=== PATIENT | female | born 1965 | race Caucasian/White ===

== ENCOUNTER → 2018-09-04 11:04 | Outpatient (CLI) | payer MEDICAID, SELFPAY ==
[2015-07-10 01:37] VITALS: BMI 46.5
[2018-09-04 12:44] LABS: Basophil# 0.01 X10^3/uL; Basophil% 0.2 % (0-1); Eosinophil# 0.06 X10^3/uL; Eosinophils% 1.1 % (0-5); Hematocrit 46.9 % (37-47); Hemoglobin 16.6 g/dl (12.0-15.0); Mean Corp Hgb Conc 35.4 g/gl (32-36); Mean Corpuscular Volume 87.5 fL (81-99); Mean Platelet Vol. 10.8 fl (6.2-12.0); Monocyte# 0.35 X10^3/uL; Monocyte% 6.4 % (0-10); Neutrophil # 3.96 X10^3/uL (2.7-7.7); Neutrophil % 72.1 % (47-70); Platelet Count 229 K/mm3 (150-450); RBC Distribution Width CV 13.3 % (11.6-14.6); Red Blood Count 5.36 M/mm3 (4.2-5.4); White Blood Count 5.5 K/mm3 (4.4-11.0)
[2018-09-04 12:48] LABS: POSITIVE COUNT NO; POSITIVE DIFFERENTIAL NO; POSITIVE MORPHOLOGY NO
[2018-09-04 13:11] LABS: ALB/GLOB Ratio 1.2 RATIO (0.9-2.4); AST(SGOT) 17 U/L (15-37); Alanine Aminotransfer ALT/SGPT 29 U/L (13-56); Albumin, Serum 3.8 g/dL (3.2-5.0); Alkaline Phosphatase 86 U/L (45-117); Anion Gap 6 (5-15); BUN 15 mg/dL (7-18); BUN/Creat Ratio 18.1 RATIO (10-20); Calcium,Total 9.3 mg/dL (8.5-10.1); Chloride 108 mmol/L (98-107); Creatinine, Serum 0.83 mg/dL (0.55-1.02); EST Glomerular Filtration Rate 77 mL/min (>60); Est Glom Filt Rate - Afr Amer 93 mL/min (>60); Ferritin 86 ng/mL (8-252); Globulin 3.3 g/dL (2.2-4.2); Glucose 132 mg/dL (74-106); Iron 163 ug/dL (50-170); Potassium 3.7 mmol/L (3.5-5.1); Protein, Total 7.1 g/dL (6.4-8.2); Sodium Level 139 mmol/L (136-145); T4 Free Direct 1.09 ng/dL (0.76-1.46); Thyroid Stim Hormone (TSH) 1.71 uIU/mL (0.358-3.74)
== END ==
PROVIDERS: PCP Family Medicine; Visit Provider Family Medicine
DX: D50.9 Iron deficiency anemia, unspecified (principal); D68.51 Activated protein C resistance; R73.01 Impaired fasting glucose
CPT/HCPCS: 36415; 80053; 82728; 83540; 84439; 84443; 85025

== ENCOUNTER → 2019-01-04 11:55 | Outpatient (CLI) | payer MEDICAID, SELFPAY ==
--- NOTE | 2019-01-04 12:01 | BI_ITS ---
MAMMOGRAPHY - BILATERAL SCREENING REASON FOR EXAM: Female, 53 years old. Routine annual screening examination. PERTINENT HISTORY: Non-contributory. TECHNIQUE: Digital bilateral breast samantha (3D mammographic acquisition) in the CC and MLO projections. 2-D mediolateral oblique (MLO) and craniocaudad (CC) views of both breasts were obtained. CAD: Full Field Digital Mammography with Computer Added Detection was performed. COMPARISON: Comparison is made with prior outside examination of November 26, 2015. FINDINGS: Breast Composition: There are scattered areas of fibroglandular density. There are no dominant masses or suspicious calcifications. Stable benign-appearing bilateral axillary lymph nodes. No other significant abnormalities are identified. There has been no significant change since the prior study. BI/SCREEN MAMM (CAD) W/SAMANTHA BILAT IMPRESSION: Stable bilateral screening mammogram. Yearly follow-up mammogram recommended. (A) ASSESSMENT CATEGORY: BIRADS Category 2: Benign. A letter regarding these results will be sent to the patient by the facility within 30 days. Approximately 10% of breast cancers are not detected by mammography. A normal mammogram should not delay biopsy of a clinically suspicious abnormality. [id number] Electronically Signed: Tip Degroot, at 12:58 EST , Service support ,
== END ==
PROVIDERS: Family Provider Family Medicine; PCP Family Medicine; Referring Provider Family Medicine; Visit Provider Family Medicine
DX: Z12.31 Encounter for screening mammogram for malignant neoplasm of breast (principal)
CPT/HCPCS: 77063; 77067

== ENCOUNTER → 2020-04-04 15:03 | Outpatient (CLI) | payer OTHER, SELFPAY ==
--- NOTE | 2020-04-04 15:09 | VDLE_ITS ---
Reason For Study: Pain, Hx DVT Procedure LEFT This is a venous duplex using B-mode, color GSV is normal. flow and spectral Doppler. CFV is compressible, spontaneous, phasic, Exam performed in department. competent, and demonstrates normal A preliminary report was called and/or faxed augmentation. to [facility]. FV is compressible, spontaneous, phasic, competent and demonstrates normal augmentation. POP V is compressible, spontaneous, phasic, competent and demonstrates normal augmentation. T/P Trunk is compressible. PTV is compressible. LT PerV is compressible. Interpretation Summary Deep veins of the left lower extremity are patent and compressible segmentally. There is no evidence of left lower extremity deep vein thrombosis. Valvular competence appears intact within the proximal deep venous system on the left . The left great saphenous vein appears patent and compressible segmentally. Ordering Physician: Scott Valente Referring Physician: Scott Valente Performed By: Aria Garza RVT
== END ==
PROVIDERS: PCP Family Medicine; Referring Provider Family Medicine; Visit Provider Family Medicine
DX: D68.51 Activated protein C resistance (principal); Z86.718 Personal history of other venous thrombosis and embolism
CPT/HCPCS: 93971

== ENCOUNTER 2021-05-13 09:18 | Outpatient (CLI) | payer OTHER, SELFPAY ==
[2021-05-13 10:22] LABS: Absolute Lymphocyte Count 1.12 X10^3/uL (0.83-4.51); Absolute Neutrophil Count 4.5 X10^3/uL (2.0-7.7); Basophil# 0.04 X10^3/uL; Basophil% 0.7 % (0-1); Eosinophil# 0.06 X10^3/uL; Hematocrit 46.5 % (37-47); Hemoglobin 16.8 g/dL (12.0-15.0); Lymphocyte # 1.12 X10^3/ul (0.83-4.51); Lymphocyte % 18.5 % (19-41); Mean Corp Hgb Conc 36.1 g/dL (32-36); Mean Corpuscular Hgb 31.6 pg (27.0-32.0); Mean Corpuscular Volume 87.4 fL (81-99); Mean Platelet Vol. 10.3 fl (6.2-12.0); Monocyte# 0.38 X10^3/uL; Monocyte% 6.3 % (0-10); NRBC Flagged by Analyzer 0 % (0-5); Neutrophil # 4.45 X10^3/uL (2.7-7.7); Neutrophil % 73.3 % (47-70); Platelet Count 330 K/mm3 (150-450); RBC Distribution Width CV 13.1 % (11.6-14.6); Red Blood Count 5.32 M/mm3 (4.2-5.4); White Blood Count 6.1 K/mm3 (4.4-11.0)
[2021-05-13 11:22] LABS: ALB/GLOB Ratio 1.2 RATIO (0.9-2.4); AST(SGOT) 16 U/L (15-37); Alanine Aminotransfer ALT/SGPT 30 U/L (13-56); Albumin, Serum 3.7 g/dL (3.2-5.0); Alkaline Phosphatase 90 U/L (45-117); Anion Gap 7 (5-15); BUN 27 mg/dL (7-18); BUN/Creat Ratio 29.7 RATIO (10-20); Calcium,Total 9.6 mg/dL (8.5-10.1); Chloride 106 mmol/L (98-107); Cholesterol 197 mg/dL (200); Creatinine, Serum 0.91 mg/dL (0.55-1.02); EST Glomerular Filtration Rate 68 mL/min (>60); Est Glom Filt Rate - Afr Amer 82 mL/min (>60); Globulin 3.2 g/dL (2.2-4.2); Glucose 167 mg/dL (74-106); High Density Lipoprotein 49 mg/dL; Protein, Total 6.9 g/dL (6.4-8.2); Sodium Level 139 mmol/L (136-145); Thyroid Stim Hormone (TSH) 1.36 uIU/mL (0.358-3.74); Triglycerides 88 mg/dL; Very Low Density Lipoprotein 18 mg/dL (5-40)
== END 2021-05-13 23:59 | disposition home or self-care (01) ==
LOC: MTLAB 09:20
PROVIDERS: PCP Family Medicine; Referring Provider Family Medicine; Visit Provider Family Medicine
DX: E11.9 Type 2 diabetes mellitus without complications (principal); E66.01 Morbid (severe) obesity due to excess calories; D50.9 Iron deficiency anemia, unspecified
CPT/HCPCS: 36415; 80053; 80061; 84443; 85025

== ENCOUNTER → 2023-02-24 | Outpatient (CLI) | payer OTHER, SELFPAY ==
--- OUTSIDE RECORDS SUMMARY | 2023-02-24 08:54 | XMS RPT_ITS | CCD ---
Author Name Unknown Address [facility] [place] [id number] Organization [facility] Results Test Name Value Interpretation Reference Range Facil ity Progress note 05-29-2020 Note Date & Type Note Facility 05-29-2020 Note HNO ID: [id number] Author: Mitali Tang) Og Mancini Service: ? Author Type: Communications Maintainer Type: Progress Notes Filed: 05/29/2020 2:24 PM Note Text: Radiology Service Progress Note PATIENT NAME: Reymundo Bob DATE OF SERVICE: May 29, 2020 TIME: 2:24 PM PATIENT IDENTITY VERIFICATION COMPLETED USING TWO (2) IDENTIFIERS: Name and Date of confirmed by patient verbally. FALL SCREENING: Has the patient had 2 falls in the last year or 1 fall with injury or currently using an Ambulatory Assistive Device (Walker, Cane, Wheelchair, Crutches, etc.)? No PATIENT GENDER DATA: Female. status: : No status: NO. PATIENT RELEVANT IMPLANT DATA REVIEWED: Not Applicable RADIOLOGY DEPARTMENT: Mammography PERIPHERAL IV DATA: Not applicable SIGNED BY: Og Alejo May 29, 2020 2:[address] [facility] Progress note 05-29-2020 Note Date & Type Note Facility 05-29-2020 Note HNO ID: [id number] Author: Nicola Rogers Jr. Service: ? Author Type: Physician Type: Progress Notes Filed: 05/29/2020 10:30 AM Note Text: NEW PATIENT (CONSULT) HISTORY AND PHYSICAL EXAM PRIMARY CARE PHYSICIAN: Scott Valente MD REASON FOR CONSULT: GERARD REFERRING PHYSICIAN: Nicola Rogers Jr., MD CHIEF COMPLAINT: GERARD Consultation requested by Nicola Rogers Jr., MD for an opinion regarding chief complaint of Patient presents with: New Patient: sleep apnea and my final recommendations will be communicated back to the requesting physician by way of shared medical record or letter via US mail. HISTORY OF PRESENT ILLNESS: Reymundo Bob is a 55 year old female, BMI 42.43 kg/m2 with a PMH significant for GERARD diagnosed by PSG in 2009. That study reviewed showing patient to have AHI of 118.9 while off supine with min O2 of 70%. That became a split night study at which time CPAP at 13 cmH2O was recommended. The patient then underwent a repeat PAP titration in 2013 - reviewed data - showing need again for CPAP at 13 cmH2O. Pt has not been followed by the sleep center since 2013. Pt states still using PAP. Needs new PAP device with last Rx'd in 2009. Reports no issues with using PAP but the device is falling apart . States noticed in the last 6 months more tired and does not feel like was getting the same amount of pressure. However, also has lost weight. Down 11kg less than when had study in 2009. States sleeping ok. No issues falling asleep to start the night. No RLS symptoms. Wakes about 2-3 times per night but brief - pain better controlled then when last saw Dr. Garcia. Bedtime about 10PM and wakes about 630AM. Does not feel as refreshed in AM as once did and yawns in the AM. Feels tired throughout the day. States perhaps due to job that she refers to as stressful. No naps during the day but feels she could use one. Feels machine was working better 2 years ago. Receiving new masks on regular basis and cleaning machine regularly. Pt's machine does not do downloads. No parasomnias. No narcolepsy tetrad. Sleep Questionnaire Data Depression Screening 03/27/2010 08/31/2013 05/22/2020 PHQ-2 Score 0 1 0 PHQ-9 Score 0 3 3 PED PHQ-9 03/27/2010 08/31/2013 05/22/2020 Little interest or pleasure in doing things - - Not at all Feeling down, depressed, or hopeless - - Not at all Trouble falling or staying asleep, or sleeping too much - - Several days Feeling tired or having little energy - - More than half the days Poor appetite or overeating - - Not at all Feeling bad about yourself - or that you are a failure or have let yourself or your family down - - Not at all Trouble concentrating on things, such as reading the newspaper or watching television - - Not at all Moving or speaking so slowly that other people could have noticed. Or the opposite - being so fidgety or restless that you have been moving around a lot more than usual - - Not at all Thoughts that you would be better off , or of hurting yourself in some way - - Not at all If you checked off any problems, how difficult have these problems made it for you to do your work, take care of things at home, or get along with other people? - - Not difficult at all [place] Sleepiness Scale 03/27/2010 08/31/2013 05/22/2020 Score - - 4 (No daytime sleepiness) REVIEW OF SYSTEMS GENERAL:No weight loss, malaise or fevers. HEENT:Negative for frequent or significant headaches, No changes in hearing or vision, no nose bleeds or other nasal problems NECK:Negative for lumps, goiter, pain and significant neck swelling RESPIRATORY: Negative for cough, wheezing or shortness of breath. CARDIOVASCULAR: Negative for chest pain, leg swelling or palpitations. GASTROINTESTINAL: Negative for abdominal discomfort, blood in stools or black stools or change in bowel habits GENITOURINARY: No history of dysuria, frequency or incontinence MUSCULOSKELETAL: Negative for joint pain or swelling, back pain or muscle pain. NEUROLOGIC:Negative for focal numbness or weakness, headaches and dizziness or syncope, vision changes, speech/language changes, changes in gait or falls -- besides those complaints as above in HPI. LAB/IMAGING: PCP outside of [facility]. Reviewed and include: WBC (k/uL) Date Value 10/15/2015 7.30 RBC (m/uL) Date Value 10/15/2015 4.94 Hemoglobin (g/dL) Date Value 10/15/2015 14.9 Hematocrit (%) Date Value 10/15/2015 43.9 MCV (fL) Date Value 10/15/2015 88.9 MCH (pG) Date Value 10/15/2015 30.2 MCHC (g/dL) Date Value 10/15/2015 33.9 RDW-CV (%) Date Value 10/15/2015 14.8 Platelet Count (k/uL) Date Value 10/15/2015 288 MPV (fL) Date Value 10/15/2015 11.5 MEDICATIONS: miconazole (LOTRIMIN AF, DESENEX) 2 % powder Apply 1 application to affected area as needed for Itching/Rash. levonorgestrel (MIRENA) 20 mcg/24 hr (5 years) IUD 1 Each by INTRAUTERINE route one time only. warfarin (C (more content not included)... [facility] Clinical Note 05-09-2020 Note Date & Type Note Facility 05-09-2020 Note ADDITIONAL PROCEDURES PRESENT Specimen originated from [facility] Specimen #: [id number] Submitting Physician: VALERIA HUNTER M.D. ([id number]) SPECIMEN SUBMITTED A: CERVICAL, SCREENING, FLUID FINAL DIAGNOSIS A. CERVICAL, SCREENING, FLUID Satisfactory for interpretation. Negative for intraepithelial lesion or malignancy. Acute inflammation. Predominance of coccobacilli consistent with shift in vaginal radha. STALIN Delatorre(ASCP) (Electronic Signature) ADDITIONAL PROCEDURE(S) HUMAN PAPILLOMA VIRUS Date Ordered: 05/12/2020 Date Reported: 05/14/2020 Procedure Results and Interpretation Negative for HPV DNA high risk type 16 by PCR. Negative for HPV DNA high risk type 18 by PCR. Negative for HPV DNA high risk types: 31,33,35,39,45,51,52,56,58,59,66,68 by PCR. This test was developed and its performance characteristics determined by [facility]'s [facility] [place] [facility] It has not been cleared or approved by the FDA. [facility] is regulated under CLIA as qualified to perform high-complexity testing. This test is used for clinical purposes. It should not be regarded as investigational or for research. CLINICAL DATA ROUTINE EXAM, HPV Testing: Yes, automatic HPV patients over 30 Date of Last Menstrual Period: IUD STAINS A: CERVICAL, SCREENING, FLUID THIN PREP JOURNALISM INTERN Federico Matthews M.D., Brass Finisher Date of Report: 05/15/2020 Date of Procedure: 05/09/2020 Date of Receipt: 05/12/2020 Submitted by: VALERIA HUNTER M.D. ([id number]) Location: [facility] Diagnostic interpretation performed at [place] [address]. CLIA Number: [id number] The Pap Smear is a screening test for cervical cancer. False negative results occur with all screening tests, emphasizing the need for rescreening at recommended intervals, and clinical correlation. [facility] Progress note 05-09-2020 Note Date & Type Note Facility 05-09-2020 Note HNO ID: [id number] Author: Valeria Hunter Service: ? Author Type: ? Type: Progress Notes Filed: 05/09/2020 9:58 AM Note Text: Yeni is a 55 year old who presents for an annual gynecologic exam without complaints. Has h/o endometrial hyperplasia and polyps. Has Mirena since 2016 when had DANDC polypectomy. No bleeding. No new c/o Postmenopausal: yes HRT use: No. Last Pap: 11/28/2015 normal HPV: 11/20/2015 negative History of abnormal pap: No Last mammogram: 2018normal History of abnormal mammogram: No Sexually active: Yes OB History T0 L0 SAB0 TAB0 Ectopic0 Multiple0 Live Births0 PAST MEDICAL HISTORY Diagnosis Date - Anemia - DVT of lower limb, acute (HCC) 07/04 right leg - Essential hypertension, benign 02/05/2010 - Factor V Leiden mutation (HCC) heterozygous - Morbid obesity (HCC) - Obesity - Obstructive sleep apnea - Snoring - Thickened endometrium 10/24/2015 PAST SURGICAL HISTORY Procedure Laterality Date - COLONOSCOPY 06/04/14 repeat in 5 years-fam Hx colon cancer - EGD 06/04/14 - PAST SURGICAL HISTORY OF Left nail in foot as child - PAST SURGICAL HISTORY OF 08/19/2015 dANDc - PAST SURGICAL HISTORY OF 10/24/2015 hysteroscopy, polypectomy, DANDC, insertion Mirena IUD FAMILY HISTORY Problem Relation Age of Onset - Psychiatry Mother Depression - Colon Cancer Mother diagnosed age 68 - Diabetes Father obese - Hypertension Father - Diabetes Paternal Grandmother - Cancer Maternal Grandmother breast cancer - Diabetes Maternal Grandmother - Blood Disease Brother factor 5 - Psychiatry Sister Depression - Diabetes Sister - Hypertension Sister - Asthma Other Niece - Blood Disease Paternal Grandfather - Blood Disease Brother SOCIAL HISTORY Social History Tobacco Use - Smoking status: Never Smoker - Smokeless tobacco: Never Used Substance Use Topics - Alcohol use: No Comment: Rarely - Drug use: No REVIEW OF SYSTEMS Abdomen: No abdominal pain, nausea, vomiting, diarrhea, or constipation. No bloating, early satiety, indigestion, or increased flatulence. Bladder: No dysuria, gross hematuria, urinary frequency, urinary urgency, or incontinence Breast: No breast lumps, nipple d/c, overlying skin changes, redness or skin retraction Allergies and current medication updated:Yes EXAM: Ht 5' 5 (1.65m) Wt 256 lb (116.1kg) LMP 10/12/2015 BMI 42.60 kg/(m2). GENERAL: pleasant, female in no apparent distress HEENT: Normocephalic, atraumatic, mucus membranes moist and no lesions NECK: Supple, full range of motion, no adenopathy and thyroid normal DERMATOLOGY: Normal, without lesions, non-icteric and non-hirsute, some erythema under pannus, in groin folds and under breasts BREAST: soft, non-tender, symmetric, no dominant mass, normal nipple-areolar complex, no lymphadenopathy and no nipple discharge CHEST: Normal inspiratory effort ABDOMEN: soft, non-tender and no masses PELVIC: external genitalia normal, normal Bartholin's glands, urethra, Honeygo's glands, no vulvar lesions, no cervical lesions, good vaginal support, physiologic discharge present, normal appearing perineal body and perianal region, IUD strings 3 cm long, BIMANUAL: uterus normal size, shape and consistency, no adnexal masses, non-tender and limited by habitus RECTOVAGINAL: deferred. NEURO: alert and oriented x3,exam grossly non-focal EXTREMITIES: normal ASSESSMENT/PLAN: 1) Health maintenance: Pap done with HPV. Mammogram ordered Colon cancer screening: ordered by PCP, family h/o colon ca 2) Follow up one year or sooner as needed leave IUD in for 7 years unless other indication to remove it d/w her symptomatic measures for intertriginous yeast, trial zeasorb Valeria Hunter MD [facility] Summary Purpose Family History No Family History Records Found Advance Directives No Advanced Directives Records Found Additional Source Comments INFORMATION SOURCE (unrecogn ized section and content) FOR RECORDS PERTAINING TO PATIENTS WHO ARE OR HAVE BEEN ENROLLED IN A CHEMICAL DEPENDENCY/SUBSTANCEABUSE PROGRAM, SOME INFORMATION MAY BE OMITTED. This clinical summary was aggregated from multiple sources. Caution should be exercised in using it in the provision of clinical care. This summary normalizes information from multiple sources, and as a consequence, information in this document may materially change the coding, format and clinical context of patient data. In addition, data may be omitted in some cases. CLINICAL DECISIONS SHOULD BE BASED ON THE PRIMARY CLINICAL RECORDS. [employer] provides no warranty or guarantee of the accuracy or completeness of information in this document.
[2023-02-24 10:31] LABS: Absolute Lymphocyte Count 1.33 X10^3/uL (0.83-4.51); Absolute Neutrophil Count 5.9 X10^3/uL (2.0-7.7); Basophil# 0.08 X10^3/uL; Eosinophil# 0.15 X10^3/uL; Eosinophils% 1.9 % (0-5); Hematocrit 51.8 % (37-47); Hemoglobin 17.1 g/dL (12.0-15.0); Lymphocyte # 1.33 X10^3/ul (0.83-4.51); Lymphocyte % 16.7 % (19-41); Mean Corpuscular Hgb 30.2 pg (27.0-32.0); Mean Corpuscular Volume 91.4 fL (81-99); Mean Platelet Vol. 10.1 fl (6.2-12.0); Monocyte# 0.46 X10^3/uL; Monocyte% 5.8 % (0-10); NRBC Flagged by Analyzer 0 % (0-5); Neutrophil % 74.2 % (47-70); Platelet Count 482 K/mm3 (150-450); RBC Distribution Width CV 13.7 % (11.6-14.6); RBC Distribution Width SD 46.5 fl (35.1-43.9); Red Blood Count 5.67 M/mm3 (4.2-5.4)
[2023-02-24 10:53] LABS: ALB/GLOB Ratio 1.1 RATIO (0.9-2.4); AST(SGOT) 20 U/L (15-37); Alanine Aminotransfer ALT/SGPT 28 U/L (13-56); Albumin, Serum 3.6 g/dL (3.2-5.0); Alkaline Phosphatase 74 U/L (45-117); Anion Gap 5 (5-15); BUN 21 mg/dL (7-18); BUN/Creat Ratio 28.8 RATIO (10-20); Chloride 108 mmol/L (98-107); Cholesterol 187 mg/dL (200); Creatinine, Serum 0.73 mg/dL (0.55-1.02); EST Glomerular Filtration Rate 87 mL/min (>60); Est Glom Filt Rate - Afr Amer 106 mL/min (>60); Globulin 3.4 g/dL (2.2-4.2); Glucose 155 mg/dL (74-106); High Density Lipoprotein 57 mg/dL; Sodium Level 138 mmol/L (136-145); Triglycerides 161 mg/dL; Very Low Density Lipoprotein 32 mg/dL (5-40)
[2023-02-24 11:16] LABS: International Normalized Ratio 1.9; Prothrombin Time (Protime)PT. 21.5 SECONDS (11.7-14.9)
[2023-02-24 12:37] LABS: Microalbumin,Random Urine 22.5 mg/L (NO RANGE EST.); Microalbumin:Creatinine Ratio 80.4 mg/g CRE (<30 mg/g CRE)
== END | disposition home or self-care (01) ==
LOC: MFPLAB 08:33
PROVIDERS: PCP Family Medicine; Visit Provider Family Medicine
DX: D68.51 Activated protein C resistance (principal)
CPT/HCPCS: 36415; 80053; 80061; 82043; 82570; 85025; 85610

== ENCOUNTER → 2023-06-08 | Outpatient (CLI) | payer OTHER, SELFPAY ==
[2023-06-08] VITALS (12 sets, daily range): BP systolic 117–150; BP diastolic 70–111; PULSE 75–84; RESP 16–18; TEMP 36.2; O2SAT 92–98; BMI 38.0
--- NOTE | 2023-06-08 | BMB_PTH ---
PATIENT: REYMUNDO BOB LOC: CT U#:[id number] AGE/SX: 58/F ROOM: RE06/08/[address]: Dr. Lamont Nickerson DO : 1965 BED: DIS: 06/08/2023 SPEC #: [id number] RECD: 06/08/23 09:45 STATUS: REGINA REBib #: [id number] IBRAHIMA: 06/08/23 00:[address]: Lamont Nickerson DEPT: BONE MARROW RECD BY: Sharon Rodriguez ENTERED: 06/08/23 09:45 SP TYPE: BMB OTHR DR: Edda Bernabe DO Tissues: A - Bone marrow, NOS B - Bone marrow, NOS C - Bone marrow, NOS Procedures: Bone Marrow Aspiration Bone Marrow Core Biopsy Iron Stain Bone Marrow HEADER OPERATION: CT guided bone marrow biopsy PRE-OP DIAGNOSIS: Polycythemia vera TISSUE SUBMITTED: A - Core, B - Clot, C - Smears, and send outs (cytogenetics) BONE MARROW DIAGNOSIS Bone marrow biopsy, clot and aspiration: Normocellular bone marrow. No evidence of malignancy. See comment. CHELSEA/ 06/09/2023 COMMENT Cytogenetic studies are pending and will be reported as an addendum. Case has been reviewed in consultation with Dr. Quinn who concurs with the above diagnosis. IDC:SJ BONE MARROW STUDY Slides are reviewed. CBC DATE: 06/08/23 WBC 9.8; RBC 5.16; HGB 15.7; HCT46.5; MCV 90.1; RDW 45.9; PLTS 351,000 SEGS 76.5%; LYMPHS 12.6%; MONOS 7.2%; EOS 1.0%; BASOS 1.0% PERIPHERAL SMEAR: Submitted. RBC: Normocytic, Normochromic WBC: Normomorphic PLTS: Normomorphic BONE MARROW ASPIRATE DIFFERENTIAL: 200 cell count. Blasts % (normal 0-2): 3 Promyelocytes % (normal 1-5): 4 Myelocytes and metamyelocytes % (normal 17-41): 20 Bands and Segs % (normal 15-32): 32 Eos % (normal 1-6): 2 Basos % (normal 0-1): 0 Monocytes % (normal 0-4): 0 Erythroid Precursors % (normal 17-35): 28 Lymphocytes % (normal 7-13): 11 Plasma Cells % (normal 0-2): 1 ASPIRATE FINDINGS: Site: Not specified Spicular Cellular M/E ratio: 2.14 (Normal 1.5 - 4.0) Megakaryocytes: Normomorphic Erythropoiesis: Normoblastic Granulopoiesis: Progressive CORE BIOPSY FINDINGS: No bone marrow particles. Only blood present. ASPIRATE CLOT FINDINGS: Site: Not specified Marrow Particles: Many Cellularity %: 50 M/E ratio: Within normal limits Megakaryocytes: Adequate Granuloma(s): Not identified Lymphoid aggregate(s): Not identified Atypical infiltrate(s): Not identified SPECIAL STAINS (with matched controls): Iron: Stainable iron present Reticulin: Within normal limit PAS: Highlights myeloid elements and megakaryocytes. BONE MARROW GROSS A - Received is a container labeled with the patient's name and designated bone marrow. The specimen consists of a piece a scant amount of soft tissue. The specimen is totally submitted for cell block preparation. B - Received labeled with the patient's name and designated bone marrow is a specimen that consists of approximately 5 ml of bloody fluid that on filtration yields multiple minute fragments of blood clots measuring in aggregate 2.0 x 2.5 x 0.2 cm. The specimen is totally submitted in one cassette. C - Also received are 10 unstained and 1 peripheral stained slide. The unstained slides are submitted for appropriate staining. Also received are 1 green top tube which are sent to our reference lab for Cytogenetics. CIRILO/ 06/08/23 TC:5 CPT: 09977, 26031, 99366 x2, 98769 x3 ADDENDUM ADDENDUM ADDENDUM ADDENDUM ADDENDUM ADDENDUM ADDENDUM ADDENDUM 06/17/2023 09:46 ADDENDUM 06/17/2023 09:46 ADDENDUM 06/17/2023 09:46 ADDENDUM 06/17/2023 09:46 ADDENDUM 06/17/2023 09:46 CYTOGENETICS REPORT FROM [facility] CYTOGENETIC RESULT: 46, XX(20) INTERPRETATION: Normal female karyotype was observed in twenty metaphases analyzed. Please see complete report in e-chart or EMR
--- NOTE | 2023-06-08 07:59 | CT_ITS ---
PROCEDURE: CT GUIDED bone marrow biopsy and bone marrow aspirate of the right posterior iliac bone. DATE: June 08, 2023. INDICATION: Female, 58 years old. Polycythemia vera. PHYSICIAN: Tip Degroot M.D. RADIATION DOSAGE (If Supplied By Facility): CTDIvol = ( 26.5 ) mGy, DLP = ( 840.72 ) mGycm. Individualized dose optimization techniques were utilized. PROCEDURE: The risks, benefits, and alternatives to the procedure were explained to the patient. The specific risk of hemorrhage requiring further treatment or intervention was detailed and accepted. Follow-up instructions were discussed with the patient as well. Written informed consent was obtained. The patient was brought into the CT suite and placed in the prone position. . An appropriate entry site was identified. The overlying skin was prepped and draped in the usual sterile fashion. 1% lidocaine was administered subcutaneously for local anesthesia. Conscious sedation was performed. The patient received 2 mg of Versed and 50 mcg of fentanyl intravenously. Conscious sedation was started at 8:52 AM and terminated at 9:07 AM. The patient was independently monitored by the department nurse. Under CT guidance, a bone marrow biopsy as well as bone marrow aspirates were performed utilizing an 11-gauge bone marrow biopsy kit. The specimens were then placed in the appropriate fluid and transported to the laboratory for analysis. Hemostasis was obtained. The patient tolerated the procedure well without immediate complications. CT/Biopsy/Inj or Needle Placement IMPRESSION: Successful CT guided bone marrow biopsy and bone marrow aspirate of the posterior right iliac bone, as described above. The conscious sedation protocol was followed. Electronically Signed: Tip Degroot MD at 9:54 EDT ,
[2023-06-08 08:02] LABS: Absolute Lymphocyte Count 1.23 X10^3/uL (0.83-4.51); Absolute Neutrophil Count 7.5 X10^3/uL (2.0-7.7); Basophil# 0.07 X10^3/uL; Basophil% 0.7 % (0-1); Eosinophil# 0.24 X10^3/uL; Eosinophils% 2.5 % (0-5); Hematocrit 46.5 % (37-47); Hemoglobin 15.7 g/dL (12.0-15.0); Lymphocyte # 1.23 X10^3/ul (0.83-4.51); Lymphocyte % 12.6 % (19-41); Mean Corp Hgb Conc 33.8 g/dL (32-36); Mean Corpuscular Hgb 30.4 pg (27.0-32.0); Mean Corpuscular Volume 90.1 fL (81-99); Mean Platelet Vol. 9.9 fl (6.2-12.0); Monocyte% 7.2 % (0-10); NRBC Flagged by Analyzer 0 % (0-5); Neutrophil # 7.46 X10^3/uL (2.7-7.7); Neutrophil % 76.5 % (47-70); Platelet Count 351 K/mm3 (150-450); RBC Distribution Width SD 45.9 fl (35.1-43.9); Red Blood Count 5.16 M/mm3 (4.2-5.4); White Blood Count 9.8 K/mm3 (4.4-11.0)
[2023-06-08] MEDS: 0.9% Normal Saline (250mL Bag) 250 ML 15 ML IV (08:51)
[2023-06-08] MEDS: Midazolam 2 MG/2 ML Syringe IV ×2 (08:52→08:59)
[2023-06-08] MEDS: fentaNYL 100 MCG/2 ML Ampul IV (08:53)
[2023-06-08] MEDS: Lidocaine 2% (20 ml mdv) 20 ML Vial INFILT (09:00)
== END | disposition home or self-care (01) ==
PROVIDERS: Family Medicine; Nurse Practitioner Acute Care; PCP Family Medicine; Referring Provider Internal Medicine Hematology & Oncology; Visit Provider Internal Medicine Hematology & Oncology
DX: D75.839 Thrombocytosis, unspecified (principal); D45 Polycythemia vera; E11.9 Type 2 diabetes mellitus without complications
CPT/HCPCS: 38222; 36415; 77012; 83036; 85025; 88305; 88311; 88313; 99156; J7050; A4216

== ENCOUNTER 2023-06-12 10:14 | Emergency (ER) | payer OTHER, SELFPAY ==
[2023-06-12 10:15] VITALS: BP 165/100; PULSE 97; RESP 16; TEMP 36.2; O2SAT 96; BMI 37.6
--- NOTE | 2023-06-12 10:19 | ED.VIS.DYS ---
HPI History of Present Illness Chief Complaint: Shortness of Breath Informant: patient Onset/Context/Timing Onset: Today Context: sleep Timing: Continuous Quality: Positive for Dyspnea on exertion and Orthopnea Worsened by: Exertion and Lying flat Relieved by: - (Sitting up) Associated Symptoms Negative for cough, rhinorrhea, post nasal drip, ear pain, fever, sore throat, chills, sweats, clear sputum, white sputum, yellow sputum or green sputum Chest Pain: Positive for Tightness Narrative Narrative: Patient presents with shortness of breath that began this morning. Patient states she woke up with shortness of breath. Patient states her breathing is worse with any exertion and with laying flat. Patient states it is better with sitting up. Patient admits to some tightness in her chest. Patient states it is diffuse across her entire chest. Patient also admits to some pain in her right calf and left ankle. Patient states she had a recent bone marrow biopsy and was off of her Coumadin for that. Patient states she has restarted her Coumadin and has been compliant with that. [facility] Medical History (Updated 06/12/23 @ 13:[address] Mike Williamson, ) Diabetes Factor 5 Leiden mutation, heterozygous Hypertension Home Medications warfarin 5 mg tablet (Jantoven) 5 mg PO DAILY 07/10/15 [History Last Taken Unknown] dapagliflozin propanediol 10 mg tablet (Farxiga) 10 mg PO DAILY 06/08/23 [History Last Taken Unknown] lisinopril 30 mg tablet 30 mg PO DAILY 06/08/23 [History Last Taken Unknown] metformin 1,000 mg tablet 1,000 mg PO BID 06/08/23 [History Last Taken Unknown] apixaban 5 mg tablet (Eliquis) 10 mg (2 x 5 mg) PO BID 7 days #28 tabs 06/12/23 [Rx Last Taken Unknown] Allergy/AdvReac Type Severity Reaction Status Date / Time latex Allergy Hives Verified 06/12/23 10:17 Surgical History History of bone marrow biopsy Social History Smoking Status: Never smoker ROS ROS ED Constitutional Constitutional ED: Denies chills or fever(s) Eyes Eyes: Denies blurry vision or change in vision ENT ENT ED: Denies rhinorrhea or sore throat Cardiovascular Cardiovascular: Reports chest pain; Denies palpitations Respiratory/Chest Respiratory/Chest: Reports dyspnea; Denies cough Gastrointestinal Gastrointestinal: Reports nausea; Denies vomiting Genitourinary Genitourinary ED: Denies dysuria or hematuria Musculoskeletal Musculoskeletal: Denies back pain or neck pain Integumentary Denies abscess or rash Neurologic Neurologic: Denies headache(s) or weakness Allergic/Immunologic Allergic/Immunologic ED: Denies mouth swelling or urticaria EXAM Physical Exam Const Vital Signs: 06/12/23 10:15 06/12/23 10:31 06/12/23 10:31 Temperature 97.1 F L Temperature Source Temporal Pulse Rate 97 Respiratory Rate 16 Respiratory Effort Normal Blood Pressure 165/100 H Blood Pressure Mean 121 Pulse Ox 96 Oxygen Delivery Method Room Air Room Air Room Air 06/12/23 12:15 Temperature Temperature Source Pulse Rate 81 Respiratory Rate 18 Respiratory Effort Blood Pressure 143/86 H Blood Pressure Mean 105 Pulse Ox 98 Oxygen Delivery Method Room Air Positive well nourished, well developed and obese General Appearance ED: well developed and NAD Nutritional Appearance: obese HEENT Reports moist mucous membranes Neck supple and no JVD Resp normal respiratory effort and clear to auscultation bilaterally Cardio regular rate and regular rhythm Neuro oriented x3, CN's II-XII intact bilaterally and no sensory deficits noted [place] Coma Scale: document GCS findings Spontaneous Obeys Commands Oriented 15 Sensorium / Orientation: alert Speech: speech normal Motor Exam: strength 5/5 throughout Psych mental status grossly normal MDM MDM MDM Narrative Medical decision making narrative: Differential diagnosis includes pulmonary embolism, pneumonia, pneumothorax, coagulopathy, cardiac dysrhythmia, and cardiac ischemia. CBC will be obtained to assess for leukocytosis and anemia. Basic metabolic profile will be obtained to assess for electrolyte abnormality and renal function. High-sensitivity troponin will be obtained to assess for cardiac ischemia. PT with INR will be obtained to assess for coagulopathy. CTA of the chest will be obtained to assess for pulmonary embolism. Lab Data Attestation: I reviewed the patient's lab results. Lab results narrative: CBC was reviewed and was essentially within normal limits. Hemoglobin was slightly elevated at 16.4 and hematocrit was 48.5. Basic metabolic profile was reviewed and was within normal limits with the exception of an elevated glucose of 204. High-sensitivity troponin was reviewed and was normal at 3. PT with INR was reviewed. Pro time was 15.1 and INR is subtherapeutic at 1.2. Labs: Laboratory Results - last 24 hr 06/12/23 10:31 WBC 9.5 RBC 5.38 Hgb 16.4 H Hct 48.5 H MCV 90.1 MCH 30.5 MCHC 33.8 RDW Std Deviation 45.8 H RDW Coeff of Anurag 13.8 Plt Count 383 MPV 10.2 Immature Gran % (Auto) 0.400 Neut % (Auto) 75.9 H Lymph % (Auto) 14.3 L [place] % (Auto) 6.5 Eos % (Auto) 2.2 Baso % (Auto) 0.7 Absolute Neuts (auto) 7.2 Absolute Lymphs (auto) 1.36 Nucleated RBC % 0 PT 15.1 H INR 1.2 Sodium 137 Potassium 4.0 Chloride 104 Carbon Dioxide 22.0 Anion Gap 11 BUN 20 H Creatinine 0.98 Estim Creat Clear Calc 76.98 Est GFR (MDRD) Af Amer 75 Est GFR (MDRD) Non-Af 62 BUN/Creatinine Ratio 20.3 H Glucose 204 H Calcium 9.9 Troponin I High Sens 3 Radiography Diagnostic Testing: Clinical Impression(s) from Imaging Studies Chest CTA 06/12/23 10:31 IMPRESSION: Small segmental and subsegmental pulmonary emboli in the right middle lobe and bilateral lower lobes. Small subsegmental pulmonary emboli in the bilateral upper lobes. No thoracic aortic aneurysm or dissection. No pulmonary infiltrates or pleural effusions. Electronically Signed: Antione Beckford MD at 11:46 EDT , ADDENDUM: 06/12/23 1157 IMPRESSION: Small segmental and subsegmental pulmonary emboli in the right middle lobe and bilateral lower lobes. Small subsegmental pulmonary emboli in the bilateral upper lobes. No thoracic aortic aneurysm or dissection. No pulmonary infiltrates or pleural effusions. N.B. : The above Results were Read Back by Antione Beckford MD to Mike Williamson DO, and understanding confirmed on 06/12/2023 11:50:17 (ET). Electronically Signed: Antione Beckford MD at 11:46 EDT , CTA of the chest was obtained. There are small segmental and subsegmental pulmonary emboli in the right middle lobe and bilateral lower lobes. There is also small subsegmental pulmonary emboli in the bilateral upper lobes. There are no infiltrates or effusions. There is no aneurysm or dissection noted. There is no evidence of right heart strain. This was interpreted by the radiologist was also independently reviewed by myself. EKG Initial EKG: Attestation: I personally reviewed and interpreted this EKG as follows: Interpretation: Sinus Rhythm (77) and No Acute Injury Pattern Comments: EKG was obtained. On my independent interpretation, it showed a normal sinus rhythm with a rate of 77. [place] interval, QRS interval, and QTc intervals were all normal. There is left axis deviation at -38. There are no acute ST or T wave changes. Prior EKG tracings: not available for review Prior: No Prior Treatment and Re-Evaluation :: Patient was given a dose of Lovenox here. Patient was advised of her findings. Case was discussed with Dr. Ortiz who is covering for Dr. Salazar. He recommended starting the patient on Eliquis 10 mg twice daily until her Coumadin is therapeutic. Patient will follow-up with Dr. Salazar that this week. Patient understood and was agreeable with the plan. All questions were answered. Discharge Plan Triage Chief Complaint: Shortness of Breath Other Complaint: Lower Extremity Injury ED Provider: Mike Williamson Dx/Rx/DC Orders Clinical Impression: Pulmonary emboli, Hypertension Instructions: Pulmonary Embolism Prescriptions: New Eliquis 5 mg tablet 10 mg PO BID 7 Days Qty: 28 0RF No Action warfarin [Jantoven] 5 MG tablet 5 mg PO DAILY metformin 1,000 mg tablet 1,000 mg PO BID lisinopril 30 mg tablet 30 mg PO DAILY dapagliflozin propanediol [Farxiga] 10 mg tablet 10 mg PO DAILY Primary Care Provider: Edda Bernabe Referrals: Edda Bernabe, DO [Primary Care Provider] - 3-5 Days Activity Restrictions/Additional Instructions: Continue your Coumadin as prescribed. Take the Eliquis twice daily until your INR is therapeutic. Follow-up with your primary care physician in 2 to 3 days for INR recheck. Disposition Disposition: Home, Self Care
[2023-06-12 10:31] VITALS: O2SAT 98
--- NOTE | 2023-06-12 10:31 | CT_ITS ---
We are attempting to reach an attending provider to discuss findings. An addendum with communication details will be sent when the communication is complete. STUDY: CTA CHEST WITH CONTRAST REASON FOR EXAM: Female, 58 years old. Shortness of breath. RADIATION DOSAGE (If Supplied By Facility): CTDIvol = ( 11.45 ) mGy, DLP = ( 540.51 ) mGycm TECHNIQUE: Transaxial imaging was performed following intravenous administration of 100 ml of Isovue-370 contrast material. Coronal and sagittal reformatted images were created. 3D post processed images were created. Individualized dose optimization techniques were used for this CT. COMPARISON: Prior study dated: 06/01/2013 FINDINGS: LUNGS: There are no pulmonary infiltrates. There are no pulmonary nodules or masses. PLEURAL SPACE: There are no pleural effusions. There is no pneumothorax. MEDIASTINUM: The heart and pericardium are within normal limits. There is no pneumomediastinum. There is no thoracic lymphadenopathy. VESSELS There are small segmental and subsegmental pulmonary emboli in the right middle lobe and bilateral lower lobes. There are small subsegmental pulmonary emboli in the bilateral upper lobes. The pulmonary artery is normal in caliber. There is no evidence of right heart strain. There is no thoracic aortic aneurysm or dissection. UPPER ABDOMEN: Images through the upper abdomen demonstrate no significant abnormality. BONES: There are degenerative changes noted in the spine. There are no destructive osseous lesions. SOFT TISSUES: The visualized soft tissues are unremarkable. CT/CTA Chest W/WO Contrast IMPRESSION: Small segmental and subsegmental pulmonary emboli in the right middle lobe and bilateral lower lobes. Small subsegmental pulmonary emboli in the bilateral upper lobes. No thoracic aortic aneurysm or dissection. No pulmonary infiltrates or pleural effusions. Electronically Signed: Antione Beckford MD at 11:46 EDT ,
--- NOTE | 2023-06-12 10:31 | EKG12_ITS ---
Test Reason : SOB Blood Pressure : / mmHG Vent. Rate : 077 BPM Atrial Rate : 077 BPM P-R Int : 156 ms QRS Dur : 084 ms QT Int : 384 ms P-R-T Axes : 037 -38 050 degrees QTc Int : 434 ms Normal sinus rhythm Left axis deviation Pulmonary disease pattern Abnormal ECG Confirmed by Ubaldo Vieira ([id number]), senior technical editor SHYAM WILLIS ([id number]) on 06/13/2023 9:58:56 AM Referred By: ANGELES Confirmed By:Ubaldo Vieira
[2023-06-12 10:48] LABS: Absolute Lymphocyte Count 1.36 X10^3/uL (0.83-4.51); Absolute Neutrophil Count 7.2 X10^3/uL (2.0-7.7); Basophil# 0.07 X10^3/uL; Basophil% 0.7 % (0-1); Eosinophil# 0.21 X10^3/uL; Eosinophils% 2.2 % (0-5); Hematocrit 48.5 % (37-47); Hemoglobin 16.4 g/dL (12.0-15.0); Lymphocyte # 1.36 X10^3/ul (0.83-4.51); Lymphocyte % 14.3 % (19-41); Mean Corp Hgb Conc 33.8 g/dL (32-36); Mean Corpuscular Hgb 30.5 pg (27.0-32.0); Mean Corpuscular Volume 90.1 fL (81-99); Mean Platelet Vol. 10.2 fl (6.2-12.0); Monocyte# 0.62 X10^3/uL; Monocyte% 6.5 % (0-10); NRBC Flagged by Analyzer 0 % (0-5); Neutrophil # 7.22 X10^3/uL (2.7-7.7); Neutrophil % 75.9 % (47-70); Platelet Count 383 K/mm3 (150-450); RBC Distribution Width CV 13.8 % (11.6-14.6); RBC Distribution Width SD 45.8 fl (35.1-43.9); Red Blood Count 5.38 M/mm3 (4.2-5.4); White Blood Count 9.5 K/mm3 (4.4-11.0)
[2023-06-12 11:05] LABS: Anion Gap 11 (5-15); BUN 20 mg/dL (7-18); BUN/Creat Ratio 20.3 RATIO (10-20); Calcium,Total 9.9 mg/dL (8.5-10.1); Chloride 104 mmol/L (98-107); Creatinine, Serum 0.98 mg/dL (0.55-1.02); EST Glomerular Filtration Rate 62 mL/min (>60); Est Glom Filt Rate - Afr Amer 75 mL/min (>60); Estimated Creatinine Clearance 76.98 ml/min; Glucose 204 mg/dL (74-106); Sodium Level 137 mmol/L (136-145); Troponin-I HS 3 pg/mL (3.0-54.0)
[2023-06-12 11:57] LABS: International Normalized Ratio 1.2; Prothrombin Time (Protime)PT. 15.1 SECONDS (11.7-14.9)
[2023-06-12 12:15] VITALS: BP 143/86; PULSE 81; RESP 18; O2SAT 98
[2023-06-12] MEDS: Enoxaparin 100 MG/ML Syringe SC (12:31)
[2023-06-12 13:55] VITALS: BP 135/78; PULSE 78; RESP 18; TEMP 36.6; O2SAT 98
== END 2023-06-12 13:58 | disposition home or self-care (01) ==
PROVIDERS: Emergency Provider Emergency Medicine; PCP Family Medicine; Visit Provider Emergency Medicine
DX: I26.94 Multiple subsegmental thrombotic pulmonary emboli without acute cor pulmonale (principal); E11.9 Type 2 diabetes mellitus without complications; I10 Essential (primary) hypertension; M79.661 Pain in right lower leg; Z79.84 Long term (current) use of oral hypoglycemic drugs; Z79.01 Long term (current) use of anticoagulants; Z79.899 Other long term (current) drug therapy
CPT/HCPCS: 71275; 80048; 84484; 85025; 85610; 93005; 96372; 99285; Q9967; A4216